=== PATIENT | female | born 1945 | race Caucasian/White ===

== ENCOUNTER → 2017-04-08 | Outpatient (CLI) | payer OTHER ==
[~2017-04-08] MED LIST: ARTHROTEC 751 TABLET PO; ASPIR-LOW81 MG PO; BABY ASPIRIN81 M1 PO; BENADRYL ALLERG25 MG PO; CELEXA20 MG PO; CIPROFLOXACIN500 M1 PO; DICLOFENAC SODI50 MG PO; DULERA 100 MCG/13 GM IH; KRILL OIL500 MG PO; MISOPROSTOL200 MCG PO; NEXIUM40 MG PO; ONE DAILY WOME1 EACH PO; PROAIR HFA8.5 GM IH; PROPRANOLOL HCL60 MG PO; QNASL NS; QNASL8.7 GM BOTH NARES; REGLAN5 MG PO; RESTASIS 01 DROP/0.4 BOTH EYES; SINGULAIR10 MG PO; SYNTHROID125 MCG PO; SYNTHROID150 MCG PO; VITAMIN D31000 UNI2 PO; VOLTAREN75 MG PO
== END | disposition home or self-care (01) ==
DX: R13.10 Dysphagia, unspecified (principal); Z87.01 Personal history of pneumonia (recurrent); Z87.19 Personal history of other diseases of the digestive system
CPT/HCPCS: 92611 GN; G8996 GN CH; G8997 GN CH; G8998 GN CH